=== PATIENT | male | born 1985 | race Hispanic/Latino ===

== ENCOUNTER 2018-12-19 13:50 | Emergency (ER) | payer MEDICARE, OTHER ==
[2018-12-19] MEDS ORDERED: NACL 0.9% 1000 ML 1,000 ML IV ONE (13:56)
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
[2018-12-19 14:33] LABS: Hematocrit 46.4 % (35.5-45.6); Hemoglobin 14.7 gm/dl (11.8-15.2); Mean Corpuscular HGB Conc 32 % (32-34); Mean Corpuscular Volume 98 fl (84-94); Platelet Count 290 K/mm3 (140-440); Red Blood Count 4.74 M/mm3 (3.65-5.03); Red Cell Distribution Width 15.4 % (13.2-15.2)
[2018-12-19 14:37] LABS: Creatine Kinase MB 2.7 ng/mL (0.0-4.0)
[2018-12-19 14:39] LABS: Alanine Aminotransferase 34 units/L (7-56); Albumin 3.9 g/dL (3.9-5); BUN/Creatinine Ratio 16; Blood Urea Nitrogen 13 mg/dL (9-20); Calcium 9.6 mg/dL (8.4-10.2); Hemolysis Index 10
[2018-12-19 14:53] LABS: Bilirubin,Urine NEG (Negative); Blood,Urine NEG (Negative); Color,Urine Yellow (Yellow); Urobilinogen,Urine < 2.0 mg/dL (<2.0)
[2018-12-19 15:00] LABS: Benzodiazepines Screen,Urine PRESUMPTIVE NEGATIVE; Cannabinoid Screen,Urine PRESUMPTIVE NEGATIVE; Cocaine Screen,Urine PRESUMPTIVE NEGATIVE; Methadone Screen,Urine PRESUMPTIVE NEGATIVE; Opiate Screen,Urine PRESUMPTIVE NEGATIVE
[2018-12-19 15:14] LABS: Amphetamine Screen,Urine PRESUMPTIVE POSITIVE
--- NOTE | 2018-12-19 16:56 | Cat Scan Report ---
FINAL REPORT EXAM: CT HEAD/BRAIN WO CON HISTORY: [email or web address]. od COMPARISON: None available. TECHNIQUE: Axial images obtained skull base through vertex. FINDINGS: No acute intracranial hemorrhage, midline shift or pathologic extra axial fluid collection. Ventricle s and cisterns are normal in size and configuration for the patient's age. Barton-white differentiation preserved. Calvarium grossly intact. Visualized ocular globes are grossly unremarkable. Visualized p randy-nasal sinuses and mastoid air cells are clear. IMPRESSION: No grossly acute intracranial abnormality.
[2018-12-19 18:43] VITALS: BP 111/71
== END 2018-12-19 20:50 | disposition admitted as inpatient to this hospital (09) ==
LOC: ED 13:50
DX: T50.901A Poisoning by unspecified drugs, medicaments and biological substances, accidental (unintentional), initial encounter (principal); R41.82 Altered mental status, unspecified; G82.20 Paraplegia, unspecified
CPT/HCPCS: 36415; 70450; 80053; 80307; 81003; 82550; 82553; 84484; 85025; 93005; 93010; 96360; 99291; G0480; 80320